=== PATIENT | female | born 1995 | race Two or more races ===

== ENCOUNTER 2018-08-31 15:01 | Emergency (ER) | payer OTHER ==
[~2018-08-31] VITALS: Ht 160 cm; Wt 86.2 kg
[2018-08-31] MEDS ORDERED: IV NORMAL SALINE 1,000ML 1,000 ML IV SCH (15:36)
--- NOTE | 2018-08-31 15:40 | PHYS DOC ---
Adult General Chief Complaint Chief Complaint: ABDOMINAL PAIN HPI HPI Patient is a 22 year old female who presents with complaining of right lower quadrant and right pelvic pain for 1 week see constant pain that started gradually and getting worse with movement and activity. Patient complaining of nausea and states her pain getting worse during bowel movement. Patient denies vomiting, fever and chills, vaginal bleeding or discharge, urinary symptoms, diarrhea and constipation, injury, history of the same pain, vaginal bleeding or discharge. LMP was in early July and she had negative home test. She'll rated her pain 8/10 and states she took ibuprofen without improvement of her pain. Review of Systems Review of Systems Constitutional: Denies fever or chills [] Eyes: Denies change in visual acuity, redness, or eye pain [] HENT: Denies nasal congestion or sore throat [] Respiratory: Denies cough or shortness of breath [] Cardiovascular: No additional information not addressed in HPI [] GI: Reports abdominal pain, nausea, denies vomiting, bloody stools or diarrhea [ ] : Denies dysuria or hematuria [] Musculoskeletal: Denies back pain or joint pain [] Integument: Denies rash or skin lesions [] Neurologic: Denies headache, focal weakness or sensory changes [] Endocrine: Denies polyuria or polydipsia [] All other systems were reviewed and found to be within normal limits, except as documented in this note. Current Medications Current Medications Current Medications Medications (Trade) Dose Ordered Sig/Maria Elena Start Time Stop Time Status Last Admin Dose Admin Sodium Chloride 1,000 ml @ 1,000 mls/hr Q1H 08/31/18 15:36 08/31/18 16:35 UNV Allergies Allergies Allergies Coded Allergies Type Severity Reaction Last Updated Verified Pork/Porcine Containing Products Allergy Unknown 08/31/18 Yes scallops Allergy Unknown 08/31/18 Yes Physical Exam Physical Exam Constitutional: Well developed, well nourished, mild distress, non-toxic appearance. [] HENT: Normocephalic, atraumatic oropharynx moist, no oral exudates, nose normal. [] Eyes: PERRLA, EOMI, conjunctiva normal, no discharge. [] Neck: Normal range of motion, no tenderness, supple, no stridor. [] Cardiovascular:Heart rate regular rhythm, no murmur [] Lungs & Thorax: Bilateral breath sounds clear to auscultation [] Abdomen: Bowel sounds normal, soft, right lower quadrant guarding, no hernia, no tenderness, no masses, no pulsatile masses. [] Skin: Warm, dry, no erythema, no rash. [] Back: No tenderness, no CVA tenderness. [] Extremities: No tenderness, no cyanosis, no clubbing, ROM intact, no edema. [] Neurologic: Alert and oriented X 3, normal motor function, normal sensory function, no focal deficits noted. [] Psychologic: Affect normal, judgement normal, mood normal. [] EKG EKG [] Radiology/Procedures Radiology/Procedures [address] [address] IMAGING REPORT Signed PATIENT: LUBA RENAE ACCOUNT: [id number] : 1995 LOCATION: ER AGE: 22 SEX: F EXAM STATUS: REG ER ORD. PHYSICIAN: ANTHONY LEVIN MD REASON: right pelvic pain PROCEDURE: US PELVIS W/TV Pelvic ultrasound Clinical Indication: Right pelvic pain for one week.. . TRANSABDOMINAL SCAN 7.5 cm longitudinal by 3.4 cm AP by 4.6 cm wide uterus measurements. Right ovary measures 5.4 cm with a 4.5 cm cyst. Left ovary measures 2.9 cm. Individual stripe is 6 mm. TRANSVAGINAL SCAN Uterus: * Size (in centimeters): About 7.2 cm longitudinal by 3.2 AP by 4.3 wide * Appearance: No evidence of mass. Mild fluid identified in the cervix. Small nabothian cyst. * Endometrium: 6 mm endometrial stripe thickness. Uniform appearance. Right ovary: * Size: 5.4 cm long axis. * Blood flow: Intact * Appearance: Large simple appearing cyst measures 4.9 cm. Left ovary: * Size: 3.0 cm cm long axis. * Blood flow: Intact * Appearance: No significant mass. Free fluid: None visualized IMPRESSION: 1. Simple appearing right ovarian cyst measures 4.9 cm. 2. Mild fluid in the cervix. Electronically signed by: Marvel Turner MD (08/31/2018 5:12 PM) [facility] DICTATED AND SIGNED BY: MARVEL TURNER MD DATE: 08/31/18 1708 CC: JOE BOOKER MD; ANTHONY LEVIN MD ~ Course & Med Decision Making Course & Med Decision Making Pertinent Labs and Imaging studies reviewed. (See chart for details) Evaluation of patient in ER showed 22-year-old female patient with complaining of right lower quadrant pain for 1 week with history of appendectomy. Patient had unremarkable physical exam and labs and ultrasound of pelvis except for ovarian cyst. Patient treated with Toradol and felt better. Dragon Disclaimer Dragon Disclaimer This electronic medical record was generated, in whole or in part, using a voice recognition dictation system. Departure Departure: Impression: Primary Impression: Right ovarian cyst Additional Impression: Right lower quadrant pain Disposition: HOME, SELF-CARE (1800) Condition: IMPROVED Referrals: JOE BOOKER MD (PCP) Patient Instructions: Ovarian Cyst Additional Instructions: Drink plenty of liquids Follow-up with your primary care physician in 3-5 days Return to ER if not getting better Scripts Tramadol Hcl (ULTRAM) 50 Mg Tablet 50 MG PO PRN Q6HRS PRN for PAIN, #20 TAB Prov: ANTHONY LEVIN MD 08/31/18 Problem Qualifiers ANTHONY LEVIN MD Aug 31, 2018 15:40
[2018-08-31 16:14] LABS: BASO # 0.1 x10^3/uL (0.0-0.2); BASO % 1 % (0-3); EOS # 0.1 x10^3/uL (0.0-0.7); EOS % 1 % (0-3); HEMATOCRIT 40.4 % (36.0-47.0); HEMOGLOBIN 13.9 g/dL (12.0-15.5); LYMPH # 2.8 x10^3/uL (1.0-4.8); LYMPH % 24 % (24-48); MEAN CORPUSCULAR HEMOGLOBIN 31 pg (25-35); MEAN CORPUSCULAR HGB CONC 34 g/dL (31-37); MEAN CORPUSCULAR VOLUME 89 fL (79-100); MONO # 0.7 x10^3/uL (0.0-1.1); MONO % 6 % (0-9); NEUT # 7.9 x10^3uL (1.8-7.7); NEUT % 68 % (31-73); PLATELET COUNT 316 x10^3/uL (140-400); RED BLOOD COUNT 4.55 x10^6/uL (3.50-5.40); RED CELL DISTRIBUTION WIDTH 13.6 % (11.5-14.5); WHITE BLOOD COUNT 11.6 x10^3/uL (4.0-11.0)
[2018-08-31 16:23] LABS: PREG TEST PT QUAL NEGATIVE (NEG)
[2018-08-31 16:27] LABS: ALBUMIN 3.7 g/dL (3.4-5.0); ALBUMIN/GLOBULIN RATIO 0.9 (1.0-1.7); CALCIUM 8.9 mg/dL (8.5-10.1); CREATININE 0.9 mg/dL (0.6-1.0); GFR 77.6; POTASSIUM 3.9 mmol/L (3.5-5.1); TOTAL BILIRUBIN 0.2 mg/dL (0.2-1.0); TOTAL PROTEIN 7.8 g/dL (6.4-8.2)
--- NOTE | 2018-08-31 17:15 | RAD ---
Pelvic ultrasound Clinical Indication: Right pelvic pain for one week.. . TRANSABDOMINAL SCAN 7.5 cm longitudinal by 3.4 cm AP by 4.6 cm wide uterus measurements. Right ovary measures 5.4 cm with a 4.5 cm cyst. Left ovary measures 2.9 cm. Individual stripe is 6 mm. TRANSVAGINAL SCAN Uterus: * Size (in centimeters): About 7.2 cm longitudinal by 3.2 AP by 4.3 wide * Appearance: No evidence of mass. Mild fluid identified in the cervix. Small nabothian cyst. * Endometrium: 6 mm endometrial stripe thickness. Uniform appearance. Right ovary: * Size: 5.4 cm long axis. * Blood flow: Intact * Appearance: Large simple appearing cyst measures 4.9 cm. Left ovary: * Size: 3.0 cm cm long axis. * Blood flow: Intact * Appearance: No significant mass. Free fluid: None visualized IMPRESSION: 1. Simple appearing right ovarian cyst measures 4.9 cm. 2. Mild fluid in the cervix. Electronically signed by: Marvel Turner MD (08/31/2018 5:12 PM) [facility]
[2018-08-31] MEDS ORDERED: TRAM-48 PO (17:43)
[2018-08-31] MEDS ORDERED: KETOROLAC 30 MG/ML VIAL. IV ONE (17:45)
[2018-08-31 18:32] LABS: BACTERIA,URINE 0 /HPF (0-FEW); BILIRUBIN,URINE NEG (NEG); CLARITY,URINE CLEAR; COLOR,URINE STRAW; GLUCOSE,URINE NEG (NEG); NITRITE,URINE NEG (NEG); RBC,URINE 0 /HPF (0-2); SQUAMOUS EPITHELIAL CELL,UR OCC /LPF; UROBILINOGEN,URINE 0.2 mg/dL (0.2 mg/dL); WBC,URINE 0 /HPF (0-4)
[2018-08-31 19:01] VITALS: BP 136/75
== END 2018-08-31 19:01 | disposition home or self-care (01) ==
LOC: EDBD 15:01 → ER 15:01
DX: N83.201 Unspecified ovarian cyst, right side (principal); Z91.018 Allergy to other foods
CPT/HCPCS: 36415; 76830; 76856; 80053; 81001; 84703; 85025; 96374; 99285; J1885; J7030